=== PATIENT | female | born 1970 | race Caucasian/White ===

== ENCOUNTER 2016-12-01 07:09 | Emergency (ER) | payer OTHER ==
[2016-12-01 07:22] VITALS: BP 122/78
--- NOTE | 2016-12-01 08:11 | RAD ---
HISTORY: Right shoulder pain COMPARISONS: None VIEWS: 4, Frontal internal rotation, external rotation, outlet, and axillary views of the right shoulder FINDINGS: BONE DENSITY: Normal. BONES: There is no displaced fracture. JOINTS: There is no arthropathy. ALIGNMENT: There is no dislocation. SOFT TISSUES: There is soft tissue calcification along the greater tuberosity. OTHER FINDINGS: None. IMPRESSION: SOFT TISSUE CALCIFICATIONS SUGGESTIVE OF A CALCIFIC TENDINOPATHY. NO ACUTE OSSEOUS INJURY. IF SYMPTOMS PERSIST, RECOMMEND REPEAT IMAGING
--- NOTE | 2016-12-01 08:20 | UC ---
Deion Zambrano Angela, scribed for Checo Nava MD on 12/01/16 at 0730 . Upper Extremity HPI - HPI Summary HPI Summary: This pt is a 46 y/o presenting to [facility] c/o worsening atraumatic right shoulder pain for a couple of days. Pt states that she has decreased ROM of right arm and shoulder secondary to pain in shoulder. At its worse her pain is 9 out of 10 with movement of shoulder. Pt reports that last night she was awoken due to pain in her shoulder. She notes taking motrin [employer] today at around 0600 with some relief. Pt denies trauma to the right shoulder, neck pain, elbow pain, SOB , chest pain, fever, chills. - History of Current Complaint Chief Complaint: UCUpperExtremity Stated Complaint: SHOULDER PAIN Time Seen by Provider: 12/01/16 07:20 Hx Obtained From: Patient Hx Last Menstrual Period: 11/05/16 Onset/Duration: Lasting Days, Still Present Location Of Pain: Is Discrete @ - right shoulder blade Aggravating Factor(s): Movement Alleviating Factor(s): OTC Meds - motrin Associated Signs And Symptoms: Negative: Fever, Weakness - Allergies/Home Medications Allergies/Adverse Reactions: Allergies Allergy/AdvReac Type Severity Reaction Status Date / Time Penicillins Allergy Rash Verified 12/01/16 07:15 PMH/Surg Hx/FS Hx/Imm Hx Other Cardiovascular History: DENIES: HTN Other Respiratory History: DENIES: Asthma, COPD - Surgical History Surgical History: None - Social History Alcohol Use: Occasionally Substance Use Type: None Smoking Status (MU): Never Smoked Tobacco Review of Systems Constitutional: Negative Skin: Negative Eyes: Negative ENT: Negative Respiratory: Negative - SOB Cardiovascular: Negative - chest pain Gastrointestinal: Negative Musculoskeletal: Negative - elbow pain, neck pain, Other: - right shoulder pain Neurological: Negative All Other Systems Reviewed And Are Negative: Yes Physical Exam Triage Information Reviewed: Yes Vital Signs: Initial Vital Signs Temp 98.8 F 12/01/16 07:16 Pulse 80 12/01/16 07:16 Resp 18 12/01/16 07:16 BP 122/78 12/01/16 07:16 Pulse Ox 100 12/01/16 07:16 Vital Signs Reviewed: Yes - Additional Comments General: well-appearing, no pain distress Skin: warm, color reflects adequate perfusion, dry Head: normocephalic, atraumatic Eyes: EOMI, TAMRA ENT: normal Neck: supple, nontender to palpation, good ROM, no pain Respiratory: CTA, breath sounds present Cardiovascular: RRR Musculoskeletal: Good radial pulses bilaterally, good capillary refill bilaterally. Strength is 5/5 in UE bilaterally. Hands, wrists, and elbows have full ROM. Pt has minimal ROM on right shoulder secondary to pain. Mildly tender to palpation at the shoulder joint. Clavicle is nontender. Declines to move shoulder secondary to pain. Neurological: normal, sensory/motor intact, A&O x3 Psychological: affect/mood appropriate Diagnostics - Radiology Right Shoulder XR Xray Interpretation: Positive (See Comments) - IMPRESSION: Soft tissue calcifications suggestive of calcific tendinopathy. No acute osseous injury. If symptoms persist, recommend repeat imaging. ED physician has reviewed this radiology report and agrees. Radiology Interpretation Completed By: Radiologist Upper Extremity Course/Dx - Course Course Of Treatment: This pt is a 46 y/o presenting to [facility] c/o worsening atraumatic right shoulder pain for a couple of days. She notes decreased ROM of right arm and shoulder secondary to pain. Pt denies trauma to the right shoulder , neck pain, elbow pain, SOB, chest pain. XR of right shoulder shows Soft tissue calcifications suggestive of calcific tendinopathy. No acute osseous injury. If symptoms persist, recommend repeat imaging. ED physician has reviewed this radiology report and agrees. Elevated BP noted and advised to follow up with her PCP. DISCUSSED X-RAY RESULTS WITH PATIENT AND DEMONTRATED SHOULDER ROM EXERCISES. PT DECLINED SLING. PT WILL F/U WITH PMD/SPORTS MEDICINE. MEDICATIONS REVIEWED. - Differential Dx/Diagnosis Provider Diagnoses: Calcific Tendinitis right shoulder/rotator cuff Discharge - Discharge Plan Condition: Stable Disposition: HOME Prescriptions: traMADol TAB* [Ultram*] 50 mg PO Q6HR PRN #20 tab MDD 4 PRN Reason: Pain Patient Education Materials: Rotator Cuff Tendinitis (ED), Calcific Tendinitis (ED) Referrals: [facility] [Outside] Marcy Rockwell MD [Medical Doctor] - Additional Instructions: FOLLOW UP WITH YOUR DOCTOR. GET RECHECKED FOR ANY WORSENING OF YOUR CONDITION OR QUESTIONS OR CONCERNS. The documentation as recorded by the scribe, Albarran,Reta accurately reflects the service I personally performed and the decisions made by me, Checo Nava MD.
== END 2016-12-01 08:24 | disposition home or self-care (01) ==
LOC: UCEAST 07:09
DX: M75.31 Calcific tendinitis of right shoulder (principal); Z88.0 Allergy status to penicillin
CPT/HCPCS: 99212; G0463